=== PATIENT | female | born 1935 ===

== ENCOUNTER 2017-11-24 08:56 | Outpatient (CLI) | payer OTHER ==
[~2017-11-24] VITALS: Ht 167.6 cm; Wt 64.4 kg
== END 2017-11-24 11:51 | disposition home or self-care (01) ==
LOC: OFIC 805 08:56
DX: R49.0 Dysphonia (principal); H60.8X2 Other otitis externa, left ear; H61.22 Impacted cerumen, left ear; H91.8X2 Other specified hearing loss, left ear; K21.0 Gastro-esophageal reflux disease with esophagitis

== ENCOUNTER 2018-01-01 09:01 | Outpatient (CLI) | payer OTHER ==
[~2018-01-01] VITALS: Ht 152.4 cm; Wt 64.4 kg
== END 2018-01-01 09:15 | disposition home or self-care (01) ==
LOC: OFIC 805 09:01
DX: H61.23 Impacted cerumen, bilateral (principal); H90.3 Sensorineural hearing loss, bilateral

== ENCOUNTER 2023-08-28 09:39 | Outpatient (CLI) | payer OTHER | END 2023-08-28 09:41 | disposition home or self-care (01) | LOC: NUCLEAR 09:39 | PROVIDERS: ATTEND Internal Medicine Hematology & Oncology | DX: R20.0 Anesthesia of skin (principal); G45.8 Other transient cerebral ischemic attacks and related syndromes ==